=== PATIENT | female | born 1955 | race Caucasian/White ===

== ENCOUNTER 2017-09-05 15:48 | Emergency (ER) | payer OTHER ==
[~2017-09-05] VITALS: Ht 160 cm; Wt 100.0 kg
[~2017-09-05 15:48] MED LIST: AMLO2.5T PO; AMOX500T PO; CITA-48 PO; LITH300 PO; LOVA20TA PO; MUCI600T PO; PROT40TA PO; QUET100 PO; [UNRECOGNIZED DRUG - CODE] NASAL; dayquil PO
[2017-09-05] MEDS ORDERED: IOHEXOL 350 MG/ML 10 ML VIAL (for RAD DIAG) IVCONTRAST ONE (15:49)
[2017-09-05 15:57] VITALS: BP 160/80; PULSE 78; RESP 16; TEMP 98.6; O2SAT 94
[2017-09-05] MEDS ORDERED: GABA300C5 PO (16:09)
[2017-09-05] MEDS ORDERED: SERO200T PO (16:09)
[2017-09-05] MEDS ORDERED: NORV2.5T PO (16:09)
[2017-09-05] MEDS ORDERED: PROT40TA PO (16:09)
[2017-09-05] MEDS ORDERED: SODIUM CHLORIDE 0.9% FLUSH 10 ML FLUSH IVF PRN (16:30)
[2017-09-05] MEDS ORDERED: ONDANSETRON HCL 4 MG/2 ML VIAL IV PUSH ONE (16:30)
[2017-09-05] MEDS ORDERED: HYDROmorphone HCL PF 2 MG/ML VIAL IV PUSH ONE (16:30)
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
[2017-09-05 16:49] LABS: AUTOMATED NEUTROPHIL # 16.6 TH/MM3 (1.8-7.7); BASOPHIL # 0.2 TH/MM3 (0-0.2); BASOPHIL % 0.8 % (0.0-2.0); EOSINOPHIL % 0.1 % (0.0-4.0); HEMATOCRIT 43.9 % (35.0-46.0); LYMPH % 13.3 % (9.0-44.0); LYMPHOCYTE # 2.7 TH/MM3 (1.0-4.8); MEAN CELL VOLUME 88.1 FL (80.0-100.0); MEAN CORPUSCULAR HEMOGLOBIN 30.1 PG (27.0-34.0); MEAN CORPUSCULAR HGB CONC 34.2 % (32.0-36.0); MONO % 4.4 % (0.0-8.0); MONOCYTE # 0.9 TH/MM3 (0-0.9); NEUT % 81.4 % (16.0-70.0); PLATELET COUNT 250 TH/MM3 (150-450); RED BLOOD COUNT 4.99 MIL/MM3 (4.00-5.30); RED CELL DISTRIBUTION WIDTH 14.3 % (11.6-17.2); WHITE BLOOD COUNT 20.3 TH/MM3 (4.0-11.0)
[2017-09-05 17:11] LABS: BANDS 6 % (0-6); LYMPHOCYTES 14 % (9-44); MONOCYTES 5 % (0-8); NEUTROPHIL # MANUAL DIFF 16.4 TH/MM3 (1.8-7.7); POLYS (SEG NEUTROPHILS) 75 % (16-70)
[2017-09-05 17:13] LABS: BICARBONATE 27.9 MEQ/L (21.0-32.0); CALCIUM 8.9 MG/DL (8.5-10.1); CREATININE 1.06 MG/DL (0.50-1.00)
[2017-09-05 19:48] VITALS: BP 148/78; PULSE 74; RESP 20; O2SAT 96
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
[2017-09-05] MEDS ORDERED: NORC5TAB PO (20:58)
[2017-09-05] MEDS ORDERED: CYCL10TA PO (20:58)
[2017-09-05] MEDS ORDERED: CYCLOBENZAPRINE HCL 10 MG TAB PO ONE (21:00)
[2017-09-05] MEDS ORDERED: ACETAMINOPHEN/HYDROcodone 325 MG/5 MG TAB PO ONE (21:00)
== END 2017-09-05 21:18 | disposition home or self-care (01) ==
LOC: NEPD 15:48
DX: S20.219A Contusion of unspecified front wall of thorax, initial encounter (principal); S29.012A Strain of muscle and tendon of back wall of thorax, initial encounter; I10 Essential (primary) hypertension; V49.49XA Driver injured in collision with other motor vehicles in traffic accident, initial encounter; Y92.411 Interstate highway as the place of occurrence of the external cause
CPT/HCPCS: 71260; 72125; 72129; 72132; 74177; 80048; 85007; 85027; 96374; 96375; 99285; J1170; J2405; Q9967

== ENCOUNTER 2018-07-21 13:59 | Observation (INO) ==
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
--- NOTE | 2018-07-21 18:53 | ED ---
HPI General Chief complaint: Chest Pain Stated complaint: Chest Pain Complaint/Doctor Sent Time Seen by Provider: 07/21/18 18:46 History of Present Illness HPI narrative: 63-year-old female who reports a history of tobacco use, hypertension, hyperlipidemia, GERD, presents for evaluation of chest pain. Symptoms started today at 1:30 PM when she was walking out of a grocery store. She describes it as a substernal chest pain that radiates into the back. Symptoms lasted for a few hours then resolved. She reports that she has had similar but more mild pain intermittently for the past few weeks, sometimes waking her up at night but typically coming on spontaneously. No obvious aggravating or relieving factors. She endorses mild shortness of breath associated with these episodes. Denies nausea, vomiting, dizziness, lightheadedness, diaphoresis, abdominal pain. She does report intermittent bilateral leg swelling for the past several months. She reports that for her job she has to travel quite frequently by air and by car. Most recently she traveled to [place], returned 4 days ago. She reports family history of coronary artery disease, her mother of an DE at age 73. She has never had a stress test. No other complaints at this time. Related Data Home Medications Medication Instructions Recorded Confirmed albuterol sulfate [Ventolin HFA] 2 puff INHALATION Q4-6H PRN 07/21/18 07/21/18 amlodipine 5 mg PO DAILY 07/21/18 07/21/18 atorvastatin 40 mg PO DAILY 07/21/18 07/21/18 cholecalciferol (vitamin D3) 3,000 unit PO DAILY 07/21/18 07/21/18 [Vitamin D3] citalopram 40 mg PO DAILY 07/21/18 07/21/18 cyclobenzaprine 10 mg PO DAILY 07/21/18 07/21/18 furosemide 20 mg PO DAILY 07/21/18 07/21/18 gabapentin 300 mg PO DAILY 07/21/18 07/21/18 meloxicam 7.5 mg PO DAILY 07/21/18 07/21/18 oxycodone-acetaminophen 1 tab PO Q4-6H PRN 07/21/18 07/21/18 pantoprazole 20 mg PO DAILY 07/21/18 07/21/18 quetiapine 200 mg PO BID 07/21/18 07/21/18 Allergies Allergy/AdvReac Type Severity Reaction Status Date / Time codeine AdvReac Severe nauseas Unverified 07/21/18 14:22 /vomiting Review of Systems ROS: all other systems reviewed are negative [facility] Medical History Medical History GERD (gastroesophageal reflux disease) (Acute) High cholesterol (Acute) Hypertension (Acute) Insomnia (Acute) Neuropathy (Acute) Social History Social History Second Hand Smoke Exposure: No Smoking Status: Current every day smoker Tobacco Type: Cigarettes How Often Do You Have a Drink Containing Alcohol: Monthly or less Recent Travel in [facility] within the Last 8 Weeks: No Recent Out of Country Travel within the Last 8 Weeks: No Exam Narrative Exam Narrative: GENERAL: Pleasant well-developed well-nourished female no acute distress SKIN: Warm and dry. HEAD: Atraumatic. Normocephalic. EYES: Pupils equal and round. No scleral icterus. No injection or drainage. ENT: No nasal bleeding or discharge. Mucous membranes pink and moist. NECK: Trachea midline. No JVD. CARDIOVASCULAR: Regular rate and rhythm. No murmur appreciated. RESPIRATORY: No accessory muscle use. Mild wheezing bilaterally. No crackles. GASTROINTESTINAL: Abdomen soft, non-tender, nondistended. Hepatic and splenic margins not palpable. MUSCULOSKELETAL: No obvious deformities. No clubbing. No cyanosis. No edema. NEUROLOGICAL: Awake and alert. No obvious cranial nerve deficits. Motor grossly within normal limits. Normal speech. PSYCHIATRIC: Appropriate mood and affect; insight and judgment normal. Course Initial Documented Vital Signs Temperature 97.8 F 07/21/18 14:19 Pulse Rate 75 07/21/18 14:19 Respiratory Rate 20 07/21/18 14:19 Blood Pressure 128/60 07/21/18 14:19 Pulse Oximetry 95 07/21/18 14:19 Last Documented Vital Signs Temperature 97.8 F 07/21/18 14:19 Pulse Rate 56 L 07/21/18 20:37 Respiratory Rate 16 07/21/18 20:37 Blood Pressure 178/74 H 07/21/18 18:57 Pulse Oximetry 97 07/21/18 18:57 Medical Decision Making MDM Narrative Medical decision making narrative: The patient was placed on ECG monitoring pulse oximetry. A 12-lead EKG was obtained revealing sinus rhythm with a rate of 68, T wave inversions in V1, no acute ST elevation. Lab work, chest x-ray ordered. She reports very frequent travel for work, long periods of immobilization, intermittent bilateral leg swelling. CT pulmonary angiogram and bilateral lower extremity ultrasound ordered. The patient was given a full dose aspirin. On examination she has mild wheezing, DuoNeb treatment administered. Lab work reveals leukocytosis which is stable from previous CBC in 2017. Cardiac enzymes are negative. CT pulmonary angiogram is negative for PE. There is probable scar in the left upper lobe, repeat noncontrast chest CT in 6 months is recommended. The patient be given a copy of her CT report and recommended to do this. At this point in time the plan is to admit her into the chest pain center for serial cardiac enzymes and rule out purposes. Medical Screen Exam Complete: Yes Emergency Medical Condition: Yes Differential Diagnosis Differential Diagnosis: Angina, unstable angina, acute coronary syndrome, GERD, pulmonary embolism, costochondritis, pneumothorax, hemothorax, pericarditis, myocarditis Lab Data Result diagrams: 07/21/18 19:15 07/21/18 19:15 Lab Results 07/21/18 07/21/18 07/21/18 Range/Units 19:15 19:15 19:15 WBC 16.5 H (4.0-11.0) th/mm3 RBC 5.39 H (4.00-5.30) mil/mm3 Hgb 16.1 H (11.6-15.3) gm/dL Hct 46.9 H (35.0-46.0) % MCV 87.0 (80.0-100.0) fL MCH 29.8 (27.0-34.0) pg MCHC 34.3 (32.0-36.0) % RDW 14.7 (11.6-17.2) % Plt Count 241 (150-450) th/mm3 MPV 7.3 (7.0-11.0) fL Neut % (Auto) 65.5 (16.0-70.0) % Lymph % (Auto) 27.5 (9.0-44.0) % [place] % (Auto) 5.3 (0.0-8.0) % Eos % (Auto) 0.7 (0.0-4.0) % Baso % (Auto) 1.0 (0.0-2.0) % Neut # (Auto) 10.8 H (1.8-7.7) th/mm3 Lymph # (Auto) 4.5 (1.0-4.8) th/mm3 [place] # (Auto) 0.9 (0.0-0.9) th/mm3 Eos # (Auto) 0.1 (0.0-0.4) th/mm3 Baso # (Auto) 0.2 (0.0-0.2) th/mm3 WBC Differential . Differential Comment Auto diff final Sodium 142 (136-145) meq/L Potassium 4.1 (3.5-5.1) meq/L Chloride 107 (98-107) meq/L Carbon Dioxide 28.3 (21.0-32.0) meq/L Anion Gap 7 (5-15) meq/L BUN 15 (7-18) mg/dL Creatinine 1.01 H (0.50-1.00) mg/dL Estimated GFR 56 L (>89) mL/min Random Glucose 86 (74-106) mg/dL Calcium 8.0 L (8.5-10.1) mg/dL Magnesium 2.2 (1.5-2.5) mg/dL Total Bilirubin 0.2 (0.2-1.0) mg/dL AST 11 L (15-37) U/L ALT 26 (10-53) U/L Alkaline Phosphatase 98 (45-117) U/L Total Creatine Kinase 63 (26-192) U/L Troponin I Less than 0.02 L (0.02-0.05) ng/mL Total Protein 6.5 (6.4-8.2) g/dL Albumin 3.2 L (3.4-5.0) g/dL Imaging Data Radiologist's impression: Chest X-Ray 07/21/18 14:22 CONCLUSION: 1. No acute cardiopulmonary disease. Chest CTA 07/21/18 18:48 CONCLUSION: There is no evidence of PE for technique. Probable scar left upper lobe, repeat noncontrast chest CT is recommended in 6 months. Venous Doppler Study 07/21/18 18:48 CONCLUSION: 1. The study is negative for bilateral lower extremity deep venous thrombosis. Discharge Plan Discharge Disposition Patient Disposition: 30 Still Patient Discharge Condition Condition: Stable Discharge Details Diagnosis: Chest pain Physicians Team ED Provider: Prakash Waterman ED Midlevel Provider: Daren Arnold Primary Care Provider: Primary Care Physici,Yael Rxs /Orders / Referrals /Forms Prescriptions: No Action cyclobenzaprine 10 mg Tablet 10 mg PO DAILY RF: 0 atorvastatin 40 mg Tablet 40 mg PO DAILY RF: 0 citalopram 40 mg Tablet 40 mg PO DAILY RF: 0 quetiapine 200 mg Tablet 200 mg PO BID RF: 0 amlodipine 5 mg Tablet 5 mg PO DAILY RF: 0 pantoprazole 20 mg Tablet,Delayed Release (Dr/Ec) 20 mg PO DAILY RF: 0 meloxicam 7.5 mg Tablet 7.5 mg PO DAILY RF: 0 oxycodone-acetaminophen 5-325 mg Tablet 1 tab PO Q4-6H PRN (Reason: Pain) RF: 0 gabapentin 300 mg Capsule 300 mg PO DAILY RF: 0 furosemide 20 mg Tablet 20 mg PO DAILY RF: 0 albuterol sulfate [Ventolin HFA] 90 mcg/actuation Hfa Aerosol Inhaler 2 puff INHALATION Q4-6H PRN (Reason: Bronchodilation) RF: 0 cholecalciferol (vitamin D3) [Vitamin D3] 2,000 unit Capsule 3,000 unit PO DAILY RF: 0 Discharge Instructions Patient Printed Instructions: Chest Pain (ED) Status ED Status: With Doctor
[2018-07-21 19:25] LABS: Baso # (Auto) 0.2 th/mm3 (0.0-0.2); Eos # (Auto) 0.1 th/mm3 (0.0-0.4); Eos % (Auto) 0.7 % (0.0-4.0); Hematocrit 46.9 % (35.0-46.0); Hemoglobin 16.1 gm/dL (11.6-15.3); Lymph # (Auto) 4.5 th/mm3 (1.0-4.8); Lymph % (Auto) 27.5 % (9.0-44.0); Mean Corpuscular HGB Conc 34.3 % (32.0-36.0); Mean Corpuscular Hemoglobin 29.8 pg (27.0-34.0); Mean Platelet Volume 7.3 fL (7.0-11.0); Mono # (Auto) 0.9 th/mm3 (0.0-0.9); Mono % (Auto) 5.3 % (0.0-8.0); Neut # (Auto) 10.8 th/mm3 (1.8-7.7); Neut % (Auto) 65.5 % (16.0-70.0); Platelet Count 241 th/mm3 (150-450); Red Blood Count 5.39 mil/mm3 (4.00-5.30); Red Cell Distribution Width 14.7 % (11.6-17.2); White Blood Count 16.5 th/mm3 (4.0-11.0)
[2018-07-21 19:46] LABS: Albumin 3.2 g/dL (3.4-5.0); Anion Gap 7 meq/L (5-15); Aspartate Aminotransferase 11 U/L (15-37); Blood Urea Nitrogen 15 mg/dL (7-18); Carbon Dioxide 28.3 meq/L (21.0-32.0); Chloride 107 meq/L (98-107); Glomerular Filtration Rate 56 mL/min (>89); Glucose,Random 86 mg/dL (74-106); Potassium 4.1 meq/L (3.5-5.1); Sodium 142 meq/L (136-145)
[2018-07-21 19:48] LABS: Magnesium 2.2 mg/dL (1.5-2.5)
[2018-07-21 19:53] LABS: Alanine Aminotransferase 26 U/L (10-53); Alkaline Phosphatase 98 U/L (45-117); Total Protein 6.5 g/dL (6.4-8.2)
--- NOTE | 2018-07-21 20:26 | US ---
EXAM DATE: 07/21/2018 8:21 PM EST AGE/SEX: 63 years / Female INDICATIONS: Intermittent bilateral lower extremity edema. CLINICAL DATA: This is the patient's initial encounter. Patient reports that signs and symptoms have been present for 4 - 6 months and indicates a pain score of 0/10. MEDICAL/SURGICAL HISTORY: Hypercholesterolemia. Hypertension. Gastroesophageal reflux disease . Insomnia. Neuropathy. None. COMPARISON: . TECHNIQUE: Venous ultrasound of both lower extremities was performed from the inguinal ligament to t he proximal calf. Real-time, color Doppler and spectral tracing, compression and augmentation techni ques were used. FINDINGS: Right Leg: Normal compression of the deep venous system from the inguinal region to the proximal truong f. No echogenic clot is seen. Normal response of the venous system to augmentation and respiration. Left Leg: Normal compression of the deep venous system from the inguinal region to the proximal calf . No echogenic clot is seen. Normal response of the venous system to augmentation and respiration. Other: None. CONCLUSION: 1. The study is negative for bilateral lower extremity deep venous thrombosis. Electronically signed by: Nain Stein MD 07/21/2018 8:25 PM EST
--- NOTE | 2018-07-21 20:38 | CT ---
EXAM DATE: 07/21/2018 8:32 PM EST AGE/SEX: 63 years / Female INDICATIONS: Chest pain. CLINICAL DATA: This is the patient's initial encounter. Patient reports that signs and symptoms have been present for 1 day and indicates a pain score of 5/10. MEDICAL/SURGICAL HISTORY: Hypertension. Gastroesophageal reflux disease. None. RADIATION DOSE: 28.72 CTDI (mGy) COMPARISON: No prior exams available for comparison. TECHNIQUE: Volumetric scanning was performed using a multi-row detector CT scanner during bolus infu irish of 71 ml Omnipaque 350 (iohexol) nonionic water-soluble contrast as a single exam dose. The nikunj a was post processed with a variety of visualization algorithms including full volume maximum intensi ty projection and sliding thin slab reformation. Using automated exposure control and adjustment of the mA and/or kV according to patient size, radiation dose was kept as low as reasonably achievable t o obtain optimal diagnostic quality images. DICOM format image data is available electronically for review and comparison. FINDINGS: The lungs are clear without infiltrate, nodule, or mass. There is no pleural effusion. No appreciab le pathological adenopathy is seen within the mediastinum. There is a small subcentimeter cysts in t he liver. There is no evidence of PE for technique. Irregular density is present in left upper lobe measures almost 1.1 cm in size probable scar could be followed. CONCLUSION: There is no evidence of PE for technique. Probable scar left upper lobe, repeat noncont rast chest CT is recommended in 6 months. Electronically signed by: Nain Stein MD 07/21/2018 8:37 PM EST
--- NOTE | 2018-07-21 21:56 | ECG ---
Date Performed: 07/21/2018 Time Performed: 14:26:27 PTAGE: 63 years EKG: Sinus rhythm LOW QRS VOLTAGE IN PRECORDIAL LEADS NONSPECIFIC T-WAVE ABNORMALITY BORDERLINE ECG NO PREVIOUS TRACING DOCTOR: Lebron Rollins Interpretating Date/Time 07/21/2018 21:56:01
[2018-07-21 22:39] LABS: Creatine Kinase 56 U/L (26-192)
[2018-07-22 01:14] LABS: Creatine Kinase 48 U/L (26-192)
[2018-07-22] MEDS ORDERED: Gabapentin 300 MG Capsule PO SCH (09:30)
[2018-07-22] MEDS ORDERED: Furosemide 20 MG Tablet PO SCH (09:30)
[2018-07-22] MEDS ORDERED: Pantoprazole Sodium 20 MG DR Tablet PO SCH (09:30)
[2018-07-22] MEDS ORDERED: amLODIPine 5 MG Tablet PO SCH (09:30)
[2018-07-22 10:12] LABS: Baso # (Auto) 0.1 th/mm3 (0.0-0.2); Eos # (Auto) 0.1 th/mm3 (0.0-0.4); Eos % (Auto) 0.5 % (0.0-4.0); Hematocrit 45.2 % (35.0-46.0); Hemoglobin 15.4 gm/dL (11.6-15.3); Lymph # (Auto) 3.7 th/mm3 (1.0-4.8); Lymph % (Auto) 27.2 % (9.0-44.0); Mean Corpuscular Hemoglobin 29.5 pg (27.0-34.0); Mean Corpuscular Volume 86.8 fL (80.0-100.0); Mean Platelet Volume 7.7 fL (7.0-11.0); Mono # (Auto) 0.5 th/mm3 (0.0-0.9); Mono % (Auto) 3.8 % (0.0-8.0); Neut # (Auto) 9.1 th/mm3 (1.8-7.7); Neut % (Auto) 67.5 % (16.0-70.0); Platelet Count 228 th/mm3 (150-450); Red Cell Distribution Width 14.9 % (11.6-17.2); White Blood Count 13.5 th/mm3 (4.0-11.0)
--- NOTE | 2018-07-22 10:33 | P.HPCA ---
History of Present Illness Primary Care Physician: No Primary Care Physician Chief Complaint: Chest pain History of Present Illness: This is a 63-year-old female with history of hypertension, hyperlipidemia, chronic back pain, tobacco abuse, and bipolar disorder that presents to ED with complaint of having intermittent left-sided chest discomforts basically for 2 years. States is very random. She may have a couple a week and then will not have another 4 months. Usually they only last 15-20 minutes however yesterday' s episode lasted several hours. She was not short of breath, nauseous, diaphoretic with the symptoms. Cannot recall any prior cardiac workup. She has traveled to [place] recently. She is denying calf pain. Currently not having chest discomfort. History of hypertension, hyperlipidemia, bipolar disorder, chronic back pain, and tobacco abuse. Denies known CAD and diabetes. States that her mother has peripheral vascular disease. Smokes 1 pack of cigarettes daily and has done so for more than 40 years. - Diagnosis (1) Chest pain (2) Hypertension (3) Hyperlipidemia (4) Chronic back pain (5) Tobacco abuse (6) Leukocytosis (7) Abnormal CT scan, chest Review of Systems General: Patient denies fevers, chills. She had recently traveled to [place]. HEENT: Patient denies headache, sore throat, difficulty swallowing. Cardiovascular: Has the chest discomfort as mentioned above. Denies sensation of heart beating rapidly or irregularly. No syncope. Denies diaphoresis. Respiratory: Denies shortness of breath or inspirational chest discomfort. Denies coughing wheezing or hemoptysis. GI: Patient denies nausea, vomiting, diarrhea, abdominal pain, bloody stools. Musculoskeletal: Patient denies joint pain or edema. Denies calf pain or edema. Neurovascular: Patient denies numbness, tingling, weakness in extremities. Denies headache. Endocrine: Denies polyuria and polydipsia. Hematologic: Denies easy bruising. Skin: Denies rash or itching. PMFSH - History History Provided By: Patient - Medical History Medical History: Medical History (Last Updated 07/21/18 @ 14:21 by Bonita Fan) GERD (gastroesophageal reflux disease) High cholesterol Hypertension Insomnia Neuropathy - Tobacco History Second Hand Smoke Exposure: No Tobacco Use In Past 30 Days: Yes Smoking Status: Current every day smoker Tobacco Type: Cigarettes - Alcohol History How Often Do You Have a Drink Containing Alcohol: Monthly or less - Substance Use History Substance History: No History of Abuse - Substance Use Type Marijuana Status: Active Route Used: Inhalation Reason for Use: Get High - Travel History Recent Travel in the [place] Within the Last 8 Weeks: No Recent Travel Out of the Country Within the Last 8 Weeks: No - Immunization History Tetanus Immunization: >5 Years Medications and Allergies Active Medications: Active Medications Amlodipine Besylate (Norvasc) 5 mg PO DAILY ASHANTI Atorvastatin Calcium (Lipitor) 40 mg PO DAILY ASHANTI Citalopram Hydrobromide (Celexa) 40 mg PO DAILY ASHANTI Cyclobenzaprine HCl (Flexeril) 10 mg PO DAILY ASHANTI Furosemide (Lasix) 20 mg PO DAILY ASHANTI Gabapentin (Neurontin) 300 mg PO DAILY ASHANTI Oxycodone/Acetaminophen (Percocet 5/325 Mg) 1 tab PO Q6H PRN PRN Reason: PAIN SCALE 6 TO 10 Pantoprazole Sodium (Protonix) 20 mg PO DAILY ASHANTI Quetiapine Fumarate (Seroquel) 200 mg PO BID ASHANTI Sodium Chloride (Ns Flush) 2 ml IV.FLUSH BID ASHANTI Sodium Chloride (Ns Flush) 2 ml IV.FLUSH PRN PRN PRN Reason: FLUSH AFTER USING IV ACCESS Allergies Allergy/AdvReac Type Severity Reaction Status Date / Time codeine AdvReac Severe nauseas Unverified 07/21/18 14:22 /vomiting Home Medications Medication Instructions Recorded Confirmed Type albuterol sulfate [Ventolin HFA] 2 puff INHALATION Q4-6H PRN 07/21/18 07/21/18 History amlodipine 5 mg PO DAILY 07/21/18 07/21/18 History atorvastatin 40 mg PO DAILY 07/21/18 07/21/18 History cholecalciferol (vitamin D3) 3,000 unit PO DAILY 07/21/18 07/21/18 History [Vitamin D3] citalopram 40 mg PO DAILY 07/21/18 07/21/18 History cyclobenzaprine 10 mg PO DAILY 07/21/18 07/21/18 History furosemide 20 mg PO DAILY 07/21/18 07/21/18 History gabapentin 300 mg PO DAILY 07/21/18 07/21/18 History meloxicam 7.5 mg PO DAILY 07/21/18 07/21/18 History oxycodone-acetaminophen 1 tab PO Q4-6H PRN 07/21/18 07/21/18 History pantoprazole 20 mg PO DAILY 07/21/18 07/21/18 History quetiapine 200 mg PO BID 07/21/18 07/21/18 History Exam Vital signs: Vital Signs 07/21/18 14:19 07/21/18 14:39 07/21/18 18:56 Temperature 97.8 F Pulse Rate 75 Respiratory Rate 20 Blood Pressure 128/60 Pulse Oximetry 95 95 97 07/21/18 18:57 07/21/18 20:37 07/21/18 21:01 Temperature Pulse Rate 56 L 56 L 57 L Respiratory Rate 16 16 20 Blood Pressure 178/74 H 140/75 Pulse Oximetry 97 96 07/21/18 23:14 07/22/18 00:00 07/22/18 03:11 Temperature 98.4 F 98.8 F Pulse Rate 56 L 54 L 55 L Respiratory Rate 18 18 18 Blood Pressure 133/73 142/62 H Pulse Oximetry 96 95 07/22/18 04:00 Temperature Pulse Rate 49 L Respiratory Rate Blood Pressure Pulse Oximetry Intake & Output 07/21/18 07/22/18 07/22/18 18:59 06:59 18:59 Weight 99.337 kg Narrative: GENERAL: This is a well-nourished, well-developed patient, in no apparent distress. Patient speaks in clear complete sentences. Patient is pleasant. HEENT: Head is atraumatic and normocephalic. Neck is supple without lymphadenopathy and trachea is midline. No JVD or carotid bruits. CARDIOVASCULAR: Regular rate and rhythm without murmurs, gallops, or rubs. RESPIRATORY: Clear to auscultation. Breath sounds equal bilaterally. No wheezes , rales, or rhonchi. Chest wall is nontender. No use of accessory muscles. GASTROINTESTINAL: Abdomen is nontender, nondistended. Abdomen soft. No obvious pulsatile mass or bruit. No CVA tenderness. Strong femoral pulses bilaterally. Normal bowel sounds in all quadrants. MUSCULOSKELETAL: Patient is moving upper and lower extremities freely. No calf tenderness or edema, no Homans sign. Strong pulses in upper and lower extremities. NEUROLOGICAL: Patient is alert and oriented. Cranial nerves 2-12 are grossly intact. No focal deficits and speech is clear. SKIN: No rash and turgor is normal. Results 07/22/18 09:45 07/21/18 19:15 Cardiac Enzymes 07/21/18 07/21/18 07/22/18 Range/Units 19:15 21:20 00:19 AST 11 L (15-37) U/L Troponin I Less than 0.02 L Less than 0.02 L Less than 0.02 L (0.02-0.05) ng/mL CBC 07/21/18 07/22/18 Range/Units 19:15 09:45 WBC 16.5 H 13.5 H (4.0-11.0) th/mm3 RBC 5.39 H 5.20 (4.00-5.30) mil/mm3 Hgb 16.1 H 15.4 H (11.6-15.3) gm/dL Hct 46.9 H 45.2 (35.0-46.0) % Plt Count 241 228 (150-450) th/mm3 Neut # (Auto) 10.8 H 9.1 H (1.8-7.7) th/mm3 Lymph # (Auto) 4.5 3.7 (1.0-4.8) th/mm3 [place] # (Auto) 0.9 0.5 (0.0-0.9) th/mm3 Eos # (Auto) 0.1 0.1 (0.0-0.4) th/mm3 Baso # (Auto) 0.2 0.1 (0.0-0.2) th/mm3 Comprehensive Metabolic Panel 07/21/18 Range/Units 19:15 Sodium 142 (136-145) meq/L Potassium 4.1 (3.5-5.1) meq/L Chloride 107 (98-107) meq/L Carbon Dioxide 28.3 (21.0-32.0) meq/L BUN 15 (7-18) mg/dL Creatinine 1.01 H (0.50-1.00) mg/dL Calcium 8.0 L (8.5-10.1) mg/dL AST 11 L (15-37) U/L ALT 26 (10-53) U/L Alkaline Phosphatase 98 (45-117) U/L Total Protein 6.5 (6.4-8.2) g/dL Albumin 3.2 L (3.4-5.0) g/dL - Imaging and Cardiology Imaging: Impressions Chest X-Ray 07/21/18 14:22 CONCLUSION: 1. No acute cardiopulmonary disease. Chest CTA 07/21/18 18:48 CONCLUSION: There is no evidence of PE for technique. Probable scar left upper lobe, repeat noncontrast chest CT is recommended in 6 months. Venous Doppler Study 07/21/18 18:48 CONCLUSION: 1. The study is negative for bilateral lower extremity deep venous thrombosis. EKG interpretations - EKG EKG shows: bradycardia, sinus rhythm (EKGs have been sinus rhythm and sinus bradycardia with nonspecific T wave changes.) Caprini VTE Risk Assessment Caprini VTE Risk Assessment: Moderate/High Risk (score >= 2) Caprini Risk Assessment Model: Point Value = 1 Point Value = 2 Point Value = 3 Point Value = 5 Age 41-60 Minor surgery BMI > 25 kg/m2 Swollen legs Varicose veins or History of unexplained or recurrent spontaneous Oral contraceptives or hormone replacement Sepsis (< 1 month) Serious lung disease, including pneumonia (< 1 month) Abnormal pulmonary function Acute myocardial infarction Congestive heart failure (< 1 month) History of inflammatory bowel disease Medical patient at bed rest Age 61-74 Arthroscopic surgery Major open surgery (> 45 min) Laparoscopic surgery (> 45 min) Malignancy Confined to bed (> 72 hours) Immobilizing plaster cast Central venous access Age >= 75 History of VTE Family history of VTE Factor V Leiden Prothrombin [id number] Lupus anticoagulant Anticardiolipin antibodies Elevated serum homocysteine Heparin-induced thrombocytopenia Other congenital or acquired thrombophilia Stroke (< 1 month) Elective arthroplasty Hip, pelvis, or leg fracture Acute spinal cord injury (< 1 month) Prophylaxis Regimen: Total Risk Factor Score Risk Level Prophylaxis Regimen 0-1 Low Early ambulation 2 Moderate Order ONE of the following: *Sequential Compression Device (SCD) *Heparin 5000 units SQ BID 3-4 Higher Order ONE of the following medications: *Heparin 5000 units SQ TID *Enoxaparin/Lovenox 40 mg SQ daily (WT < 150 kg, CrCl > 30 mL/min) *Enoxaparin/Lovenox 30 mg SQ daily (WT < 150 kg, CrCl > 10-29 mL/min) *Enoxaparin/Lovenox 30 mg SQ BID (WT < 150 kg, CrCl > 30 mL/min) AND/OR *Sequential Compression Device (SCD) 5 or more Highest Order ONE of the following medications: *Heparin 5000 units SQ TID (Preferred with Epidurals) *Enoxaparin/Lovenox 40 mg SQ daily (WT < 150 kg, CrCl > 30 mL/min) *Enoxaparin/Lovenox 30 mg SQ daily (WT < 150 kg, CrCl > 10-29 mL/min) *Enoxaparin/Lovenox 30 mg SQ BID (WT < 150 kg, CrCl > 30 mL/min) AND *Sequential Compression Device (SCD) Assessment and Plan - Assessment (1) Chest pain Code(s): R07.9 - Chest pain, unspecified Status: Acute (2) Hypertension Code(s): I10 - Essential (primary) hypertension Status: Acute (3) Hyperlipidemia Code(s): E78.5 - Hyperlipidemia, unspecified Status: Acute (4) Chronic back pain Code(s): M54.9 - Dorsalgia, unspecified; G89.29 - Other chronic pain Status: Acute (5) Tobacco abuse Code(s): Z72.0 - Tobacco use Status: Acute (6) Leukocytosis Code(s): D72.829 - Elevated white blood cell count, unspecified Status: Acute (7) Abnormal CT scan, chest Code(s): R93.89 - Abnormal findings on diagnostic imaging of other specified body structures Status: Acute - Plan * Chest pain: Patient has had serial cardiac enzymes and EKGs for ruling out purposes. She will be seen by Dr. Wang of cardiology in the chest pain center. She will undergo a Lexiscan. She will be discharged home if stress test is nonischemic with instructions to follow-up with PCP and return to ED for interval issues. * Hypertension: Resume medication. * Hyperlipidemia: Resume medication. * Chronic back pain: Continue medication. * Tobacco abuse: Patient counseled on the importance of smoking cessation. * Leukocytosis: Repeated CBC shows improving white blood cell count. * Abnormal CT chest: Repeat in 6 months. Discussed with her PCP. Patient is stable at this time. She is agreeable to this plan.
[2018-07-22] MEDS ORDERED: Regadenoson Inj 0.4 MG/5 ML Syringe IV.PUSH ONE (10:43)
[2018-07-22 10:44] VITALS: RESP 12; TEMP 97.9
--- NOTE | 2018-07-22 11:38 | NM ---
EXAM DATE: 07/22/2018 11:35 AM EST AGE/SEX: 63 years / Female INDICATIONS:Angina. . Mid chest pain and back pain for one day. CLINICAL DATA: This is the patient's initial encounter. Patient reports that signs and symptoms have been present for 1 day and indicates a pain score of 4/10. MEDICAL/SURGICAL HISTORY: Gastroesophageal reflux disease. Hypertension. None. COMPARISON: No prior exams available for comparison. No external comparison. DOSE: 8.8 mCi Tc 99m Myoview at rest 26.5 mCi [id number] at stress 0.4 mg Lexiscan STRESS SYMPTOMS: Shortness of breath and nausea. EJECTION FRACTION: 56 % TECHNIQUE: The patient underwent pharmacologic stress with infusion of prescribed dose. Continuous ECG tracing was monitored during stress. Gated SPECT imaging was performed after stress and conventi onal SPECT imaging was performed at rest. The examination was performed on a SPECT/CT scanner, both attenuation and non-corrected datasets were reviewed. FINDINGS: Distribution: The maximum perfused segment at stress is in the inferoseptal wall. Perfusion Study: There are no reversible perfusion defects identified. There is mild decreased perf usion, fixed along the anterior wall, cardiac apex and septal wall. Gated Study: There are intact wall motion and wall thickening without hypokinetic or dyskinetic segm ents. The ejection fraction is calculated at 56%. RISK CATEGORY: Low (<1% Annual Motality Rate) CONCLUSION: 1. No reversible perfusion defects are identified to suggest stress-induced myocardial ischemia. Electronically signed by: Migel Davila MD 07/22/2018 11:36 AM EST
--- NOTE | 2018-07-22 12:17 | TR ---
Date Performed: 07/22/2018 Time Performed: 10:43:43 DOCTOR: Amari Wang DRUG LIST: CLINICAL HISTORY: ANGINA REASON FOR TEST: Angina REASON FOR ENDING: OBSERVATION: CONCLUSION: COMMENTS: Lexiscan stress test was performed under standard four minute protocol. Radionuclide was injected one minute prior to ending the test. No electrocardiographic abormalities were present t o suggest ischemia. Nuclear imaging and interpretation are pending.
[2018-07-22 13:32] VITALS: BP 139/77; PULSE 54; O2SAT 96
--- NOTE | 2018-07-22 14:36 | ECG ---
Date Performed: 07/21/2018 Time Performed: 21:33:24 PTAGE: 63 years EKG: SINUS BRADYCARDIA LOW QRS VOLTAGE IN PRECORDIAL LEADS BORDERLINE ECG PREVIOUS TRACING : 07/21/2018 14.26 DOCTOR: Amari Wang Interpretating Date/Time 07/22/2018 14:36:05
--- NOTE | 2018-07-22 14:39 | ECG ---
Date Performed: 07/22/2018 Time Performed: 00:38:09 PTAGE: 63 years EKG: SINUS BRADYCARDIA WITH SINUS ARRHYTHMIA LOW QRS VOLTAGE IN PRECORDIAL LEADS BORDERLINE ECG PREVIOUS TRACING : 07/21/2018 21.33 Since previous tracing, no significant change noted DOCTOR: Amari Wang Interpretating Date/Time 07/22/2018 14:38:42
== END 2018-07-22 14:34 | disposition home or self-care (01) ==
LOC: NEDA 13:59 → NEPE 13:59 → NEDA 22:52 → NEPGCP 22:59
PROVIDERS: ADMIT Internal Medicine Interventional Cardiology; ATTEND Internal Medicine Interventional Cardiology